=== PATIENT | male | born 1960 | race African-American/Black ===

== ENCOUNTER → 2021-12-30 | Day surgery (SDC) | payer OTHER ==
[~2021-12-30] VITALS: Ht 172.7 cm; Wt 70.3 kg
[~2021-12-30] MED LIST: CYCLOBENZAPRINE10 MG PO; INSULIN SC; LIPITOR 10MG TA10 MG PO; LODINE400 MG PO; METFORMIN HCL500 M3 PO; ZESTRIL2.5 MG PO
[2021-12-30 08:17] LABS: HCT 55.2 % (42.0-52.0); HGB 18.3 g/dl (13.2-18.0); MCH 29.5 pg (25.0-31.0); MCHC 33.2 g/dL (32.0-36.0); MCV 88.9 fL (78.0-100.0); MPV 10.9 fL (6.0-9.5); RBC 6.21 M/uL (4.70-6.00); WBC 5.7 K/uL (4.0-10.5)
[2021-12-30 08:27] LABS: ALBUMIN 5.4 g/dL (3.4-5.0); BILIRUBIN - TOTAL 0.9 mg/dL (0.2-1.0); GLOBULIN (CALCULATION) 4.1 g/dL; TOTAL PROTEIN 9.5 g/dL (6.4-8.2)
== END | disposition home or self-care (01) ==
LOC: FAS 07:36
PROVIDERS: Surgery
DX: Z12.11 Encounter for screening for malignant neoplasm of colon (principal); E11.9 Type 2 diabetes mellitus without complications; E78.00 Pure hypercholesterolemia, unspecified; Z79.4 Long term (current) use of insulin; Z79.899 Other long term (current) drug therapy
CPT/HCPCS: 36415; 80053; 82962; J2704; J7120